=== PATIENT | female | born 1990 | race Asian ===

== ENCOUNTER 2018-09-18 12:44 | Inpatient (IN) | payer OTHER ==
[~2018-09-18] VITALS: Ht 165.1 cm; Wt 69.0 kg
[~2018-09-18 12:44] MED LIST: FAMO-96 PO; FER325 PO; MAG-19 PO; ONDA4TAB14 PO; PREN-93 PO
[2018-09-18 12:54] VITALS: Ht 165.1 cm; Wt 69.0 kg
--- NOTE | 2018-09-18 14:31 | TRIAGE ---
OB Triage Datetime Report Generated by CPN: 09/18/2018 14:31 Datetime: 09/18/2018 14:00 Stage of : OB Triage Maternal Assessment Level of Consciousness: Keenly Alert, Responsive Labor Evaluation Frequency: 0 Monitor Mode: External Resting Tone [place]: Relaxed Heart Rate FHR Baseline Rate: 135 Monitor Mode: External US Variability: Moderate 6-25 bpm Accelerations: 15X15 Decelerations: None Category: Category I Pain Assessment Pain Scale: 0 Pain Goal: 3 Vaginal Exam Membrane Status: Intact Vaginal Bleeding: None Datetime: 09/18/2018 13:15 Assessment Type: Triage Maternal Assessment Level of Consciousness: Keenly Alert, Responsive DTR's/Clonus: DTRs 2+; No Clonus Headache: Denies Blurred Vision: No Respiratory Effort: Unlabored; Regular Rhythm; Equal Expansion Breath Sounds, Left: Clear and Equal Breath Sounds, Right: Clear and Equal Nausea/Vomiting: Denies RUQ Epigastric Pain: Denies Lower Extremities Edema: Bilateral Lower Extremities Degree: None Upper Extremities Edema: None Degree: None Facial Edema: None Fall Risk Assessment History of Falling: (0) No Secondary Diagnosis: (0) No Ambulatory Aid: (0) Bedrest/Nurse Assist IV Therapy: (0) No Gait: (0) Normal/Bedrest/Immobile Mental Status: (0) Oriented to Own Ability Fall Score: 0 Fall Risk Score Definition: No Risk: No action required Datetime: 09/18/2018 13:12 Monitor Mode: External Monitor Mode: External US Datetime: 09/18/2018 13:00 Time of Arrival: 09/18/2018 12:37 EGA: 38.4 Arrived By: Ambulatory Arrived From: Dr. Barba Chief Complaint: PT. SENT FROM CLINIC FOR EVAL. PT. FOR HBP Movement: Present Contractions: Denies/Absent Rupture of Membranes: Denies Vaginal Bleeding: None Vaginal Discharge: Present Recent Sexual Intercouse: Denies Abdominal Trauma: Not Applicable Patient Complaints: None Time Provider Notified: 09/18/2018 14:20 Provider Notified: JOSH Initial Plan: NST/BPP/EFW/PIMaxine PANEL
[2018-09-18] MEDS ORDERED: BUTORPHANOL 2 MG INJ IV PRN (15:00)
[2018-09-18] MEDS ORDERED: MAGNESIUM SULFATE 4 GM/100 ML 100 ML IV ONE (15:00)
[2018-09-18] MEDS ORDERED: OXYTOCIN 30 UNITS/LR 500 ML IV SCH ×2 (15:00)
[2018-09-18] MEDS ORDERED: LIDOCAINE 1% (MPF) 30 ML INJ INJ PRN (15:00)
[2018-09-18] MEDS ORDERED: IBUPROFEN 600 MG TAB PO PRN (15:00)
[2018-09-18] MEDS: LACTATED RINGER'S 1,000 ML IV SCH ×2 (15:07→22:51)
[2018-09-18] MEDS: MAGNESIUM SULFATE 20 GM/500 ML 500 ML IV SCH (15:40)
[2018-09-18] MEDS: MISOPROSTOL 50 MCG CAPSULE PO SCH ×2 (16:16→22:53)
--- NOTE | 2018-09-18 18:03 | HP ---
Date/Time of Note Date/Time of Note DATE: 09/18/18 TIME: 17:58 OB - History Hx of Present Free Text/Dictation 28 years old 1 with single intrauterine at 38 weeks and 4 days with a JAN of 09/28/2018 referred from clinic for elevated blood pressure. She states good movement. She denies nausea, vomiting, shortness of breath, chest pain, headache, visual changes, vaginal bleeding or LOF. Chief Complaint: Elevated blood pressure Estimated Due Date: Sep 28, 2018 : 1 Care: Good Care Ultrasounds: Normal mid trimester US Obstetrical Complications: Other (Gestational hypertension versus preeclampsia) Medical Complications: None Past Family/Social History * Past Medical, Surgical, Family and Obstetric Histories reviewed from chart. Blood Type: B+ RPR/VDRL: Negative GBS Status: Negative HBsAG: Negative OB Admission Exam Vital Signs Vital Signs Blood pressure 160/100, pulse rate 74/minutes, respiratory rate 16/minutes, temperature 98.6 Physical Exam HEENT: WNL Heart: Rhythm Normal Lungs: Clear Abdomen: WNL Extremities: Normal Reflexes: Normal Cervical Dilatation: Fingertip Effacement: 0% Station: -3 Membranes: Intact Heart Rate: 130's Accelerations: Accelerations Present Decelerations: No Decelerations Varibility: Moderate Contractions on Admission: None Last 72 hours Lab Results CBC & BMP 09/18/18 13:28 Liver Function Test 09/18/18 13:28 Alanine Aminotransferase (ALT/SGPT) 19 Albumin 3.9 Alkaline Phosphatase 99 Aspartate Amino Transf (AST/SGOT) 22 Direct Bilirubin 0.00 Total Protein 7.3 OB Assessment/Plan Other plan: 28 years old 1 with single intrauterine at 38 weeks and 4 days with gestational hypertension versus preeclampsia -FHR: No sign of metabolic acidosis- Category I -Continuous EFM, toco -CBC, blood type and screen, CMP, uric acid, LDH, urinalysis -Magnesium sulfate per protocol -Consider labetalol 20 mg IV if repeat blood pressure in 10 minutes is still in severe range -Analgesia options with R/B/A discussed in detail with patient -Epidural per patient request -Please see the orders -B+/Rubella: Equivocal, will receive vaccine after delivery -GBS: Negative Preeclampsia/elevated blood pressure with maternal risk including but not li mited to: seizures, pulmonary edema, hypertensive encephalopathy, stroke, renal failure, hepatic failure or rupture, retinal detachment, blindness, disseminated intravascular coagulation, placental abruption, other morbidities and (damage to heart, lungs, liver, kidneys, blood clot factor deficiency, separation of placenta, hemorrhage, edema of brain, blindness, stroke, ) also risks to the baby including but not limited to growth restriction, hypoxemia, cerebral palsy, half-way disability or discussed in detail with patient. She expressed understanding and repeat the risks. All of her questions answered. Admission, procedures, expectations, risks and possible complications have been discussed in detail with the patient. Risk of vaginal delivery including but not limited to bleeding, infection, cervical laceration, placental retention, injury to fetus, blood transfusion, blood transfusion related infection, risk of anesthesia, adhesion, cervical laceration, episiotomy/laceration, possible delivery with risk of bleeding, infection, injury to other organs (bowel, bladder, ureter, vessels, nerves), injury to fetus, blood transfusion, blood transfusion related infection, risk of anesthesia, scar and hernia formation, needs for future , removal of uterus or any other indicated surgery discussed with the patient. She expressed understanding and repeats the risks. All of her questions were answered. She signed the informed consent. PHYSICIAN'S VERIFICATION OF INFORMED CONSENT The patient was counseled regarding the procedure, its indications, risks, potential complications and alternatives and any questions were answered. Consent was obtained. PLANNED PROCEDURE/TREATMENT: Vaginal delivery, episiotomy, repair of laceration possible delivery LIBERTY NI Sep 18, 2018 18:03
[2018-09-18] MEDS ORDERED: hydrALAzine 20 MG INJ IV PRN (21:30)
[2018-09-18] MEDS ORDERED: LABETALOL HCL 20MG INJ IV ONE (21:30)
[2018-09-18] MEDS ORDERED: LABETALOL HCL 20MG INJ IV PRN ×2 (21:30)
[2018-09-19] MEDS: MAGNESIUM SULFATE 20 GM/500 ML 500 ML IV SCH ×2 (00:45→14:26)
[2018-09-19] MEDS: MISOPROSTOL 50 MCG CAPSULE PO SCH ×4 (02:47→17:05)
[2018-09-19] MEDS: LACTATED RINGER'S 1,000 ML IV SCH ×2 (10:37→20:37)
[2018-09-19] MEDS ORDERED: LABETALOL HCL 20MG INJ IV ONE (14:30)
--- NOTE | 2018-09-19 19:38 | QN ---
Documentation Comment progress note patient seen and evaluated no complaints vs stable afebrile ab gravid nt extremity plus 1 edema b/l , no calf tenderness ve long/ close fhr cat 1 toco regular 28 years old 1 with single intrauterine at 38 weeks and 5 days with gestational hypertension/ preeclampsia currently on mg p/ patient exam discussed. patient had no significant cervical change with cytotec ripening. I offered patient a CD however decline at this time and desire to start with pitocin. The risk of pitocin induction explained to patient and patient desire to continue to have a vaginal delivery. all question were answered in detail. JOSE MORENO MD Sep 19, 2018 19:38
[2018-09-19] MEDS ORDERED: OXYTOCIN 30 UNITS/LR 500 ML IV SCH (21:00)
[2018-09-20] MEDS: LACTATED RINGER'S 1,000 ML IV SCH ×3 (06:37→22:37)
[2018-09-20] MEDS ORDERED: LABETALOL HCL 20MG INJ IV ONE (10:15)
[2018-09-20] MEDS ORDERED: CEFAZOLIN 2 GM/50 ML (PMX) 50 ML IVPB ONE (10:19)
[2018-09-20] MEDS ORDERED: AZITHROMYCIN 500MG/NS (PMX) 250 ML ONE (10:20)
[2018-09-20] MEDS ORDERED: CEFAZOLIN 2 GM/50 ML (PMX) 50 ML IVPB SCH (10:30)
[2018-09-20] MEDS ORDERED: OXYTOCIN 30 UNITS/LR 500 ML IV SCH (10:30)
[2018-09-20] MEDS ORDERED: AZITHROMYCIN 500MG/NS (PMX) 250 ML IV SCH (10:30)
[2018-09-20] MEDS ORDERED: CARBOPROST 250 MCG INJ IM PRN ×2 (10:30→17:30)
[2018-09-20] MEDS ORDERED: MISOPROSTOL 200 MCG TAB PR PRN ×2 (10:30→17:30)
[2018-09-20] MEDS ORDERED: OXYTOCIN 30 UNITS/LR 500 ML IV PRN ×2 (10:30→17:30)
[2018-09-20] MEDS ORDERED: METHYLERGONOVINE 0.2 MG INJ IM PRN ×2 (10:30→17:30)
[2018-09-20] MEDS ORDERED: morphine SULFATE/PF (10 MG/10 ML) INJ ONE (10:48)
[2018-09-20] MEDS ORDERED: OXYTOCIN 30 UNITS/LR 500 ML BAG IV ONE (10:48)
[2018-09-20] MEDS ORDERED: OXYTOCIN 10 UNIT INJ ONE (10:49)
[2018-09-20] MEDS ORDERED: ONDANSETRON 4 MG INJ ONE (10:49)
--- NOTE | 2018-09-20 11:59 | PREAC ---
Date/Time of Note Date/Time of Note DATE: 09/20/18 TIME: 11:57 Anesthesia Eval and Record Evaluation Time Pre-Procedure Interview DATE: 09/20/18 TIME: 11:57 Age 28 Sex female NPO: 8 hrs Preoperative diagnosis IUP Planned procedure C/section Past Medical History Past Medical History: Includes Cardio: HTN GI: Obesity : : Surgery & Anesthesia Issues No known issue Meds Anticoagulation: No Beta Lj within 24 hr: No Reason Beta Lj not given: Pt. not on B-Lj Reported Medications Ferrous Sulfate* (Ferrous Sulfate*) 325 Mg Tabec, 325 MG PO DAILY, TAB 09/18/18 Vit No.124/Iron/FA ( Vitamin Tablet) 1 Each Tablet, 1 EACH PO DAILY, TAB 09/18/18 Current Medications Lactated Ringer's 1,000 ml @ 100 mls/hr Q10H IV Last administered on 09/20/18at 06:37; Admin Dose 100 MLS/HR; Start 09/18/18 at 14:31 Butorphanol Tartrate (Stadol) 2 mg Q2H PRN IV .PAIN SCALE 6-10; Start 09/18/18 at 15:00 Lidocaine (Xylocaine 1% (Mpf)) 30 ml ONCE PRN INJ .EPISIOTOMY; Start 09/18/18 at 15:00 Oxytocin/Lactated Ringer's 500 ml @ 500 mls/hr ONCE POST IV ; Start 09/18/18 at 15:00 Oxytocin/Lactated Ringer's 500 ml @ 125 mls/hr POST IV ; Start 09/18/18 at 15:00 Ibuprofen (Motrin) 600 mg ONCE PRN PO .PAIN 1-5; Start 09/18/18 at 15:00 Misoprostol (Cytotec 50 Mcg Capsule) 50 mcg Q4 PO Last administered on 09/19/18at 17:05; Admin Dose 50 MCG; Start 09/18/18 at 17:00 Magnesium Sulfate 500 ml @ 25 mls/hr Q20H IV Last administered on 09/19/18at 14:26; Admin Dose 25 MLS/HR; Start 09/18/18 at 14:31 Labetalol HCl (Labetalol) 40 mg ONCE PRN IV ELEVATED BLOOD PRESSURE; Start 09/18/18 at 21:30 Labetalol HCl (Labetalol) 80 mg ONCE PRN IV ELEVATED BLOOD PRESSURE; Start 09/18/18 at 21:30 Hydralazine HCl (Apresoline) 10 mg ONCE PRN IV ELEVATED BLOOD PRESSURE; Start 09/18/18 at 21:30 Oxytocin/Lactated Ringer's 500 ml @ 0 mls/hr Q0M IV Last administered on 09/20/18at 00:36; Admin Dose 1 MLS/HR; Start 09/19/18 at 21:00 Cefazolin Sodium/ Dextrose 50 ml @ 100 mls/hr ONCE IVPB ; Start 09/20/18 at 10:30 Oxytocin/Lactated Ringer's 500 ml @ 125 mls/hr POST IV ; Start 09/20/18 at 10:30 Azithromycin 250 ml @ 250 mls/hr ONCE IV ; Start 09/20/18 at 10:30 Oxytocin/Lactated Ringer's 500 ml @ 0 mls/hr ONCE PRN IV .VAGINAL BLEEDING; Start 09/20/18 at 10:30 Methylergonovine Maleate (Methergine) 0.2 mg ONCE PRN IM .VAGINAL BLEEDING; Start 09/20/18 at 10:30 Carboprost Tromethamine (Hemabate) 250 mcg ONCE PRN IM .VAGINAL BLEEDING; Start 09/20/18 at 10:30 Misoprostol (Cytotec) 1,000 mcg ONCE PRN MN .VAGINAL BLEEDING; Start 09/20/18 at 10:30 Meds reviewed: Yes Allergies Coded Allergies: No Known Allergy (Unverified , 09/18/18) Allergies Reviewed: Yes Labs/Studies Labs Reviewed: Reviewed by anesthesiologist Result Diagram: 09/18/18 1328 09/18/18 1328 test: Positive Studies: ECG Pre-procedure Exam Last vitals BP:167/89, P:87, Spo2:100%, T:98,8 Airway: Adequate mouth opening, Adequate thyromental dist Mallampati: Mallampati II Teeth: Normal Lung: Normal Heart: Normal ASA Physical Status ASA physical status: 3 Emergency: None Planned Anesthetic Neuraxial: Spinal Planned Pain Management Sub-arachniod narcotics, Parenteral pain med Pre-operative Attestations Prior to commencing anesthesia and surgery, the patient was re-evaluated, there was verification of: *The patient's identity *The results of appropriate recent lab work and preoperative vital signs *The above evaluation not changing prior to induction *Anesthetic plan, risk benefits, alternative and complications discussed with patient/family; questions answered; patient/family understands, accepts and wish es to proceed. CARY CHACON MD Sep 20, 2018 11:59
[2018-09-20] MEDS ORDERED: ONDANSETRON 4 MG INJ IV PRN ×2 (12:00→17:30)
[2018-09-20] MEDS ORDERED: NALOXONE (0.4 MG/ML) INJ IV PRN (12:00)
[2018-09-20] MEDS ORDERED: DIPHENHYDRAMINE 50 MG INJ IV PRN ×2 (12:00→17:30)
[2018-09-20] MEDS ORDERED: morphine 2 MG INJ IV PRN (12:00)
--- NOTE | 2018-09-20 12:01 | PAC ---
Date/Time of Note Date/Time of Note DATE: 09/20/18 TIME: 12:01 Post-Anesthesia Notes Post-Anesthesia Note Activity: WNL Respiratory function: WNL Cardiovascular function: WNL Mental status: Baseline Pain reasonably controlled: Yes Hydration appropriate: Yes Nausea/Vomiting absent: Yes Comments BP:111/56, P:88, Spo2:100%, T:98,8 CARY CHACON MD Sep 20, 2018 12:01
[2018-09-20] MEDS: MAGNESIUM SULFATE 20 GM/500 ML 500 ML IV SCH (12:16)
--- NOTE | 2018-09-20 12:41 | OPPN ---
Date/Time of Note Date/Time of Note DATE: 09/20/18 TIME: 12:26 Operative Report Planned Procedure Free Text/Dictation primary c/s was requested by patient after 2days induction without progress and blood pressure in mod and severe range Procedure date Sep 20, 2018 Procedure(s) primary lower transverse section Performed by see signature line Cartridge Filler: JUAN PARTIDA M.D. 2nd Cartridge Filler none Anesthesiologist: CARY CHACON MD Pre-procedure diagnosis IUP 39w GHTN failure of induction [id number] Anesthesia Type: Vcxbm3r spinal Post-Procedure Post-procedure diagnosis same as above delivered normal male Findings Live Baby m], Apgars [8] and [9], weight [6lb 9oz], position [LOT], [Vx] presentation [No]cord. Estimated Blood Loss: 400 - 500 mls Specimen(s) placenta to pathology Grafts/Implant(s) none Complication(s) none JULITA EKRR MD Sep 20, 2018 12:36
--- NOTE | 2018-09-20 15:18 | OPR ---
DATE OF OPERATION: 09/20/2018 PREOPERATIVE DIAGNOSIS: , 39 weeks, gestational hypertension, failure of induction of labor . The patient requests. POSTOPERATIVE DIAGNOSIS: Delivered normal male . OPERATION PROCEDURE: Primary low transverse section. ANESTHESIA: Spinal. ANESTHESIOLOGIST: Dr. Trejo. SURGEON: Genna Nunez MD DYE HOUSE HELPER: José Partida MD ESTIMATED BLOOD LOSS: Approximately 500 mL. PROCEDURE: Under the proper induction of spinal anesthesia, the patient was placed in the supine pos ition. Abdominal wall was prepped and draped in usual aseptic manner. A Pfannenstiel incision was m елена approximately 2 fingers above the pubic rami. Incision was carried down through the subcutaneous tissue to the anterior recti fascia which was incised transversely in length of the incision. Fasci al flap was created by blunt and sharp dissection of tendinous attachment cephalad and 2 rectus muscl es split and peritoneal cavity was entered. No significant fluid noted. Low portion of the uterus w as exposed. A transverse incision was made above the uterovesical reflection. Incision was carried down layer by layer, reached the amniotic membrane, ruptured, revealed clear amniotic fluid and a nor mal male was born from the left occiput transverse position. Mouth and nose were cleaned and cord was delayed clamped and cut, handed to the respiratory care personnel for further care. Cord bl ood was obtained. The placenta removed manually. Uterus was exteriorized. The cavity was completel y explored. The incision was closed using #1 chromic catgut in continuous manner and second layer us ing 0 chromic catgut and thus including the uterine serosa in continuous manner. There is one little bleeder on the right aspect of the incision, which was separately closed with 0 chromic catgut. The abdominal cavity was irrigated and sponge count taken which was correct. The uterus was relocated i n abdominal cavity and the incisional site was checked for bleeder, which was intact. Then, a piece of Surgicel was laid on the incision and parietal peritoneum was closed using 0 chromic catgut in con tinuous manner, muscle closed with 0 chromic catgut in continuous manner. Fascia closed with #1 Vicr yl in continuous manner in 2 segments. Subcutaneous tissue irrigated. This layer was approximated w ith 2-0 plain in continuous manner after adequate hemostasis was secured. Skin closed with a 3-0 Mon ocryl in subcuticular manner. Steri-Strip applied. A pressure dressing applied. Estimated blood lo ss approximately 500 mL. Placenta was sent to pathology for any pathology finding. Urine output 175 mL. The patient withstood the procedure well and was sent to the recovery room in stable condition. Dictated By: GENNA LEA/GENE Conf#: [id number] DID#: [id number] CC: JOSE MORENO MD; JOSÉ PARTIDA MD;*EndCC*
[2018-09-20 17:00] VITALS: BP 151/95; RESP 18
[2018-09-20] MEDS ORDERED: LACTATED RINGER'S 1,000 ML IV SCH (17:16)
[2018-09-20] MEDS ORDERED: OXYCODONE/ACETAMINOPHEN (5/325) TAB PO PRN ×2 (17:30)
[2018-09-20] MEDS ORDERED: ZOLPIDEM 5 MG TAB PO PRN (17:30)
[2018-09-20] MEDS ORDERED: LANOLIN HPA 1 PKT TOP PRN (17:30)
[2018-09-20 18:00] VITALS: BP 149/83; RESP 19
[2018-09-20] MEDS: IBUPROFEN 600 MG TAB PO SCH (19:00)
[2018-09-20 20:00] VITALS: BP 133/87; PULSE 107; RESP 18
[2018-09-20 21:00] VITALS: BP 138/88; PULSE 115; RESP 18
[2018-09-20 22:10] VITALS: BP 142/85; PULSE 107; RESP 19
[2018-09-20] MEDS: SENNA/DOCUSATE NA (8.6MG/50MG) TAB PO SCH (23:05)
[2018-09-20 23:10] VITALS: BP 142/78; PULSE 111; RESP 18
[2018-09-21] VITALS (14 sets, daily range): BP systolic 116–148; BP diastolic 58–88; PULSE 78–113; RESP 16–19
[2018-09-21] MEDS: KETOROLAC 30 MG INJ IV PRN ×2 (00:44→06:14)
[2018-09-21] MEDS: LACTATED RINGER'S 1,000 ML IV SCH (04:27)
[2018-09-21] MEDS: IBUPROFEN 600 MG TAB PO SCH ×5 (06:00→23:38)
[2018-09-21] MEDS: MAGNESIUM SULFATE 20 GM/500 ML 500 ML IV SCH ×2 (06:02→07:21)
[2018-09-21] MEDS: SENNA/DOCUSATE NA (8.6MG/50MG) TAB PO SCH ×2 (09:54→21:10)
--- NOTE | 2018-09-21 19:36 | PN ---
Date/Time of Note Date/Time of Note DATE: 09/21/18 TIME: 19:34 OB Subjective Subjective Subjective POD#1 Patient is doing well. She denies nausea, vomiting, shortness of breath, chest pain, headache. She has been ambulating without difficulty, tolerating regular diet. Pain is well controlled on current medications OB Objective Objective Objective General: AAO X 3, comfortable, NAD, appropriate mood and affect. ABD: +BS. Soft, non-tender. Uterus 2 cm below umbilicus Incision: Clear, dry, intact. No erythema, drainage or induration. Flank: No CVA tenderness (B/L) LE: Mild edema. No clubbing, cyanosis, thigh or calf tenderness (B/L). Homans 'sign is negative OB Assessment/Plan Other plan: 28-year-old -0-0-1 with gestational hypertension s/p delivery. POD#1 - AF, VSS - Contraception methods with R/B/A/FR discussed - Continue care - She is currently doing well and has no symptom of severe features - Discontinue magnesium sulfate 24 hours after delivery LIBERTY NI Sep 21, 2018 19:36
[2018-09-22] VITALS: BP 128/69; PULSE 86; RESP 18
[2018-09-22 04:20] VITALS: BP 125/58; PULSE 84; RESP 18
[2018-09-22] MEDS: IBUPROFEN 600 MG TAB PO SCH ×4 (06:21→18:34)
[2018-09-22 08:30] VITALS: BP 127/82; PULSE 102; RESP 18
[2018-09-22] MEDS: SENNA/DOCUSATE NA (8.6MG/50MG) TAB PO SCH ×2 (10:00→21:18)
[2018-09-22 16:00] VITALS: BP 140/82; PULSE 103; RESP 18
--- NOTE | 2018-09-22 16:19 | QN ---
Documentation Comment progress note pod 2 patient seen and evaluated no complaints no headache, n/v, sob, visual changes vs stable afebrile ab c/d/i no distention extremity no edema no calf tenderness a/ sp cd pod 2 stable afebrile p/ discharge home tomorrow JOSE MORENO MD Sep 22, 2018 16:19
--- NOTE | 2018-09-22 16:22 | PD.PPDC ---
[employer] INST[employer]ER Discharge Instruction Condition [id number] Patient Condition: Ewfqd6s Fair Diet Yeqix8Fs Diet: Huxtb1t Resume Regular Diet Activity/Restrictions Zaigd2Yj Activity: Ukhmq6k Normal Activity May Shower Qynqa7Lm Restrictions: Hhavl3j No Exercising No Lifting No Driving No Sexual Activity Nothing in the Vagina No [place] No Tampons, douche Follow-up Follow-up with Physician: 3, Day/Days Provider Information: blood pressure check Return to clinic for Lueql8Yi [employer] PROJECT LEADER Instructions: Ginai7g Fever greater than 101 Chills Worsening abdominal pain Excessive Vaginal Bleeding More than 2 pads per hour Unable to tolerate diet Zpyzw7Zh OB Instructions: Utnta0c Breast Tenderness Depression Blurried Vision Headache Yuqam6Ac Surgical Instructions: Yforv7g Incisional Drainage Incisional Redness JOSE MORENO MD Sep 22, 2018 16:22
--- NOTE | 2018-09-22 18:40 | DS ---
DATE OF ADMISSION: 09/18/2018 DATE OF DISCHARGE: 09/22/2018 PRIMARY DIAGNOSIS: Intrauterine at 39 weeks gestational age, gestational hypertension, casi led induction. The patient requests for delivery. PROCEDURE: Primary low transverse delivery. CONDITION ON DISCHARGE: Stable. ACTIVITY: None per vagina, no lifting x6 weeks. DIET: Regular. MEDICATIONS ON DISCHARGE: 1. Motrin. 2. Iron. 3. Colace. DISCHARGE SUMMARY: Ms. Osullivan underwent a primary delivery on 09/20/2018. She had a viable m stu. She did undergo postop day 1 and 2. She will be discharged on postop day 3. Her incision is c lean, dry, and intact. She is ambulating, tolerating diet, positive flatulence, positive bowel movem ent. She will follow up in the clinic in 3 days for blood pressure check and postoperative incision check. Strict preeclamptic precautions were given. Dictated By: JOSE HENRY/GENE Conf#: [id number] DID#: [id number]
[2018-09-22 20:00] VITALS: BP 162/83; PULSE 91; RESP 18
[2018-09-23 00:20] VITALS: BP 149/81
[2018-09-23 04:20] VITALS: BP 150/89; PULSE 80; RESP 18
[2018-09-23] MEDS: IBUPROFEN 600 MG TAB PO SCH ×2 (07:02→11:49)
[2018-09-23 08:00] VITALS: BP 131/72; PULSE 86; RESP 16
[2018-09-23] MEDS ORDERED: DIPHTH/TET/ACEL PERTUSS (ADULT) 0.5 ML VIAL IM* ONE (09:00)
[2018-09-23] MEDS: SENNA/DOCUSATE NA (8.6MG/50MG) TAB PO SCH (09:15)
--- NOTE | 2018-09-24 16:47 | DELSUM ---
Delivery Summary A-C Datetime Report Generated by CPN: 09/24/2018 16:47 DELIVERY PERSONNEL [employer]: Sangita Honda MATERNAL INFORMATION Delivery Anesthesia: Spinal Medications in Delivery: see anesthesia records Delivery QBL (ml): 600 Placenta Cultured: No Maternal Complications: Other Other Maternal Complications: Preeclampsia, on Mag Sulfatwe LABOR SUMMARY EDC: 09/28/2018 00:00 No. Babies in Womb: 1 Attempted: No Labor Anesthesia: None LABOR INFORMATION Reason for Induction: Gest. HTN/PreEclam/Eclamp; Not Applicable Cervical Ripening Agents: Cytotec @ 50 Group B Beta Strep: Negative Antibiotics # of Doses: 2 Antibiotics Time of Last Dose: 09/20/2018 10:50 Steroids Given: None Reason Steroids Not Administered: Not Applicable MEMBRANES Membranes Rupture Method: Artificial Rupture of Membranes: 09/20/2018 11:13 Length of Rupture (hr): 0.02 Amniotic Fluid Color: Clear Amniotic Fluid Amount: Moderate Amniotic Fluid Odor: None STAGES OF LABOR Stage 3 hr: 0 Stage 3 min: 1 CSECTION DELIVERY Primary Indication: Severe PIH, Unfavor Cervix Secondary Indication: N/A CSection Urgency: Non Elective CSection Incidence: Primary Labor: Labor Elective: Nonelective CSection Incision: Lower Uterine Transverse BABY A INFORMATION Delivery Date/Time: 09/20/2018 11:14 Method of Delivery: Born in Route : No : N/A Forceps: N/A Vacuum Extraction: N/A Shoulder Dystocia : N/A SHOULDER DYSTOCIA BABY A Delivery Date/Time: 09/20/2018 11:14 PRESENTATION/POSITION BABY A Presentation: Cephalic Cephalic Presentation: Vertex Breech Presentation: N/A PLACENTA INFORMATION BABY A Placenta Delivery Time : 09/20/2018 11:15 Placenta Method of Delivery: Manual Removal Placenta Status: Delivered SCORES BABY A Heart Rate 1 min: >100 bpm Resp Effort 1 min: Good Cry Reflex Irritability 1 min: Cough/Sneeze/Pulls Away Muscle Tone 1 min: Active Motion Color 1 min: Blue/Pale Resuscitation Effort 1 min: Tactile Stimulation SCORE 1 MIN: 8 Heart Rate 5 min: >100 bpm Resp Effort 5 min: Good Cry Reflex Irritability 5 min: Cough/Sneeze/Pulls Away Muscle Tone 5 min: Active Motion Color 5 min: Body [place], Extremit Blue Resuscitation Effort 5 min: Tactile Stimulation SCORE 5 MIN: 9 INFORMATION BABY A Gestational Age at Delivery: 38.6 Gestational Status: Early Term- 37- 38.6 Weeks Infant Outcome : Liveborn, with signs of life Condition : Stable Infant Sex: Male IDENTIFICATION/MEDS BABY A ID Band Number: [id number] ID Band Location: Right Leg; Left Arm Sensor Applied: Yes Sensor Number: [id number] Sensor Location : Cord Clamp Vitamin K Given : Not Given Erythromycin Given: Not Given WEIGHT/LENGTH BABY A Infant Birthweight (gm): 2795 Weight (lb): 6 Infant Weight (oz): 3 Infant Length (in): 19.00 Length (cm): 48.26 CORD INFORMATION BABY A No. Cord Vessels: 3 Nuchal Cord : N/A Cord Blood Taken: Yes Suction: Mouth; Nose ASSESSMENT BABY A Complications: None Physical Findings at Delivery: Within Normal Limits Infant Respirations: Appears Normal Industrial Renderer/ALS Called : No Infant Care By: [place]/Nannette Transferred To: Remains with Mother
== END 2018-09-23 14:50 | disposition home or self-care (01) | DRG 788 ==
LOC: OBT 12:44 → L-D 12:44 → OBT 14:22 → L-D 14:22 → PP1 09-20 16:48
PROVIDERS: ADMIT Obstetrics & Gynecology; ATTEND Obstetrics & Gynecology
PROC: 10D00Z1 Extraction of Products of Conception, Low, Open Approach (ICD-10-PCS; principal; 2018-09-20 13:00)
DX: O14.94 Unspecified pre-eclampsia, complicating childbirth (principal); O99.214 Obesity complicating childbirth; O61.0 Failed medical induction of labor; Z3A.38 38 weeks gestation of pregnancy; Z37.0 Single live birth
CPT/HCPCS: 76815; 76818; 80053; 81001; 81003; 83735; 84560; 85025; 85384; 85610; 85730; 86592; 86900; 86901; 87340; 88307; 99464; G0463; J0456; J0690; J1885; J2274; J2405; J2590; J3475; J7120

== ENCOUNTER 2018-09-26 15:29 | Emergency (ER) | payer OTHER ==
[~2018-09-26] VITALS: Ht 165.1 cm; Wt 62.3 kg
[2018-09-26 15:41] VITALS: Ht 165.1 cm; Wt 62.3 kg
[2018-09-26] MEDS ORDERED: ONDANSETRON (ODT) 4 MG TAB ODT STA (15:58)
[2018-09-26] MEDS ORDERED: ACETAMINOPHEN 500 MG TAB PO STA (15:58)
--- NOTE | 2018-09-26 16:09 | ERD ---
ER Documentation Chief Complaint Chief Complaint 'all over' back pain x3d worsening; p c/s, epidural 09/20/18 HPI 28-year-old female presented to ED for back pain abdominal pain fever chills and nausea x3 days. Patient states that she had an epidural on 09/20/2018. Patient states that she had to have a due to high blood pressure. Patient states that she is G1, P1, A0. Patient denies any allergies to medications. Patient states that she is only been taking Tylenol at home for relief of symptoms. Patient states that is helped a little bit but she is here today because she is still not feeling better. Patient states that she had her C- section here at [facility]. ROS All systems reviewed and are negative except as per history of present illness. Medications Home Meds Active Scripts Ondansetron (Ondansetron Odt) 4 Mg Tab.rapdis, 4 MG PO Q6H PRN for NAUSEA AND/OR VOMITING, #10 TAB Prov:BREANNA RUFFIN PA-C 09/26/18 Magaldrate/Simethicone* (Mylanta*) 355 Ml Susp, 30 ML PO QID PRN for GASTROINTESTINAL UPSET, #1 BOTTLE Prov:BREANNA RUFFIN PA-C 09/26/18 Famotidine* (Pepcid*) 20 Mg Tablet, 20 MG PO BID for 10 Days, TAB Prov:BREANNA RUFFIN PA-C 09/26/18 Reported Medications Ferrous Sulfate* (Ferrous Sulfate*) 325 Mg Tabec, 325 MG PO DAILY, TAB 09/18/18 Vit No.124/Iron/FA ( Vitamin Tablet) 1 Each Tablet, 1 EACH PO DAILY, TAB 09/18/18 Allergies Allergies: Coded Allergies: No Known Allergy (Unverified , 09/18/18) PMhx/Soc History of Surgery: Yes () Anesthesia Reaction: No Hx Neurological Disorder: No Hx Respiratory Disorders: No Hx Cardiac Disorders: Yes (htn) Hx Psychiatric Problems: No Hx Miscellaneous Medical Probl: No Hx Alcohol Use: No Hx Substance Use: No Hx Tobacco Use: No Smoking Status: Never smoker FmHx Family History: No diabetes, No coronary disease, No other Physical Exam Vitals Vital Signs Date Temp Pulse Resp B/P (MAP) Pulse Ox O2 O2 Flow FiO2 Time Delivery Rate 09/26/18 99.5 87 18 128/75 97 Room Air 17:50 (92) 09/26/18 99.6 98 20 143/97 99 15:41 (112) Physical Exam GENERAL: Moderate distress HEENT: Atraumatic. Conjunctivae are pink. Pupils equal, round, and reactive to light. There is no scleral icterus. Tympanic membranes clear bilaterally. Oropharynx clear. No nystagmus or photophobia. NECK: C-spine is soft and supple. There is no meningismus. There is no cervical lymphadenopathy. CHEST: Clear to auscultation bilaterally. There are no rales, wheezes or rhonchi. HEART: Regular rate and rhythm. No murmurs, clicks, rubs or gallops. ABDOMEN:Soft, nontender and nondistended. Good bowel sounds. No rebound or guarding. No gross peritonitis. No gross organomegaly or masses. No Nino sign or McBurney point tenderness. BACK: CVA tenderness Result Diagram: 09/26/18 1607 09/26/18 1607 Results 24 hrs Laboratory Tests Test 09/26/18 16:07 09/26/18 16:17 White Blood Count 8.5 10^3/ul Red Blood Count 4.03 10^6/ul Hemoglobin 12.8 g/dl Hematocrit 37.7 % Mean Corpuscular Volume 93.5 fl Mean Corpuscular Hemoglobin 31.8 pg Mean Corpuscular Hemoglobin Concent 34.0 g/dl Red Cell Distribution Width 11.7 % Platelet Count 288 10^3/UL Mean Platelet Volume 8.9 fl Immature Granulocytes % 0.600 % Neutrophils % 75.8 % Lymphocytes % 16.5 % Monocytes % 5.0 % Eosinophils % 1.9 % Basophils % 0.2 % Nucleated Red Blood Cells % 0.0 /100WBC Immature Granulocytes # 0.050 10^3/ul Neutrophils # 6.5 10^3/ul Lymphocytes # 1.4 10^3/ul Monocytes # 0.4 10^3/ul Eosinophils # 0.2 10^3/ul Basophils # 0.0 10^3/ul Nucleated Red Blood Cells # 0.0 10^3/ul Urine Color YELLOW Urine Clarity SLIGHTLY CLOUDY Urine pH 6.0 Urine Specific [place] 1.006 Urine Ketones TRACE mg/dL Urine Nitrite NEGATIVE mg/dL Urine Bilirubin NEGATIVE mg/dL Urine Urobilinogen NEGATIVE mg/dL Urine Leukocyte Esterase NEGATIVE Dean/ul Urine Microscopic RBC 65 /HPF Urine Microscopic WBC 2 /HPF Urine Hemoglobin 2+ mg/dL Urine Glucose NEGATIVE mg/dL Urine Total Protein 2+ mg/dl Sodium Level 137 mmol/L Potassium Level 4.1 mmol/L Chloride Level 104 mmol/L Carbon Dioxide Level 25 mmol/L Anion Gap 8 Blood Urea Nitrogen 12 mg/dl Creatinine 0.83 mg/dl Est Glomerular Filtrat Rate mL/min > 60 mL/min Glucose Level 93 mg/dl Calcium Level 9.7 mg/dl Total Bilirubin 0.4 mg/dl Direct Bilirubin 0.00 mg/dl Indirect Bilirubin 0.4 mg/dl Aspartate Amino Transf (AST/SGOT) 23 IU/L Alanine Aminotransferase (ALT/SGPT) 20 IU/L Alkaline Phosphatase 89 IU/L Total Protein 7.7 g/dl Albumin 3.9 g/dl Globulin 3.80 g/dl Albumin/Globulin Ratio 1.02 POC Beta HCG, Qualitative POSITIVE Current Medications Medications Dose Sig/Bel Start Time Status Last (Trade) Ordered Route PRN Stop Time Admin Dose Reason Admin Ondansetron 4 mg ONCE STAT 09/26/18 DC 09/26/18 HCl (Zofran ODT 15:58 09/26/18 16:08 Odt) 16:01 500 mg ONCE STAT 09/26/18 DC 09/26/18 Acetaminophen PO 15:58 09/26/18 16:09 (Tylenol 16:01 Tab) Sodium 500 ml @ Q1H ONCE 09/26/18 DC 09/26/18 Chloride 500 mls/hr IV 16:30 09/26/18 16:16 17:29 40 ml ONCE ONCE 09/26/18 DC 09/26/18 Miscellaneous PO 17:30 09/26/18 17:09 Medication 17:31 (Gi Cocktail (2)) Procedures/MDM ED course: The patient was stable throughout the ED course. The patient and/or family informed of laboratory and diagnostic imaging results throughout the ED course. Diagnostic imaging: Read by radiologist Dr. Moustapha RIZVI: US Pelvis Non-OB Abdominal CLINICAL INDICATION: bleeding TECHNIQUE: Multiple sonographic images of the pelvis were obtained utilizing a transabdominal technique. The images were reviewed on a PACS workstation. COMPARISON: US PELVIS 09/18/2018 FINDINGS: Anteverted uterus is heterogeneous in appearance. The endometrial stripe complex is normal. The right ovary is normal in appearance with doppler flow. The left ovary is normal in appearance with doppler flow. No fluid is present within the pelvis. Urinary bladder is unremarkable. Measurements (cm): Endometrium: 0.8 cm Uterus: 12.5 cm x 10.19 cm x 6.23 cm Right Ovary: 2.84 cm x 2.39 cm x 1.59 cm Left Ovary: 2.35 cm x 1.69 cm x 1.26 cm IMPRESSION: Heterogeneous uterus without evidence of retained products of conception. Medications given in ER: Normal saline Acetaminophen Zofran GI cocktail Patient tolerated medication well with no adverse reactions. Patient reported improvement in pain. Medical decision makin-year-old female presenting the ED for back pain and abdominal pain x3 days. Patient had an epidural on September 20 with due to hypertension during . Since then she states that she has been having on and off fever chills with nausea and low-grade temperature at home. Patient is G1, . The patient's scar appears to be hearing healing nice is nontender to palpation and there is no discharge. The patient denies vaginal discharge or bleeding. Patient was told she was anemic after her procedure and was sent home with iron sulfate. The patient was sent to the ED because she had concerns of her blood pressure and she is not currently on blood pressure medications. The patient's blood pressure was initially 143/93 which was reevaluated prior to discharge which was 139/83. The patient's liver enzymes were not elevated and there was no sign of leukocytosis. At this time I have low suspicion for preeclampsia or eclampsia. The patient's UA did not indicate the patient had a UTI. The patient was given a GI cocktail because she stated that she also had symptoms of burning in her chest. Patient's ultrasound showed no signs of retained placenta. upon reevaluation prior to discharge the patient states the symptoms have resided. I advised the patient that she needs to follow-up with her primary care provider regarding her hypertension. The patient is in agre ement to the treatment plan. Advised the patient that if the symptoms worsen she should return to ER immediately. All questions were answered upon discharge Prescription for home: Zofran Mylanta Pepcid I have discussed with the patient proper use and common side effects to expert with the medication . I advised the patient/family to speak with the pharmacist dispensing the medication to be advised of any potential drug interactions with other medication or supplements they may be taking. Discharge: At this time, patient is stable for discharge and outpatient management. I have instructed the patient to follow-up with his\her primary care physician in 1 to 2 days. I have discussed with the patient the possibility of needing to see a specialist for further work-up and imaging studies if symptoms persist. I have instructed the patient to promptly return to the ER for any new or worsening symptoms including increased pain, fever, nausea, vomiting, weakness or LOC. The patient and\or family expressed understanding of and agreement with this plan. All questions were answered. Home care instructions were provided. Disclaimer: Inadvertent spelling and grammatical errors are likely due to EHR\dictation software use and do not reflect on the overall quality of patient care. Also, please note that the electronic time recorded on the note does not necessarily reflect the actual time of the patient encounter. Departure Diagnosis: Primary Impression: GERD (gastroesophageal reflux disease) Esophagitis presence: esophagitis presence not specified Qualified Codes: K21.9 - Gastro-esophageal reflux disease without esophagitis Condition: BREANNA Gallardo PA-C Sep 26, 2018 16:09
[2018-09-26] MEDS ORDERED: SOD CHLORIDE 0.9% 500 ML IV ONE (16:30)
[2018-09-26] MEDS ORDERED: LIDOCAINE/MYLANTA 40 ML BTL PO ONE (17:30)
[2018-09-26 17:50] VITALS: BP 128/75; PULSE 87; RESP 18
== END 2018-09-26 17:50 | disposition home or self-care (01) ==
LOC: FTE 15:29
DX: K21.9 Gastro-esophageal reflux disease without esophagitis (principal); O99.63 Diseases of the digestive system complicating the puerperium; O10.03 Pre-existing essential hypertension complicating the puerperium
CPT/HCPCS: 76856; 80053; 81001; 81025; 85025; 96360; J7040; Z7502; Z7610